=== PATIENT | female | born 1960 | race Caucasian/White ===

== ENCOUNTER → 2016-07-31 | Outpatient (CLI) | payer BC ==
--- OUTSIDE RECORDS SUMMARY | 2016-07-31 13:28 | XMS REPORT | Continuity of Care Document ---
Author Author [facility] Organization [facility] Address Unknown Phone Unavailable Allergies Medications Problems Date Dx Coded Attending Type Code Diagnosis Diagnosed By 04/27/2014 Ot 529.0 04/27/2014 Ot 529.3 04/27/2014 CECIL JILLIAN JEROME S Ot V76.12 05/04/2014 Ot 529.0 05/04/2014 Ot 529.3 05/04/2014 CECIL JILLIAN JEROME S Ot V76.12 05/25/2014 CECIL DARNELL JEROMEJILLIAN S Ot V76.12 07/08/2014 CECIL SALUD JEROMELINE S Ot 610.0 01/27/2015 [facility] DARNELL JEROMEJILLIAN S Ot V76.12 01/27/2015 [facility] DARNELL JEROMEJILLIAN S Ot V76.12 01/27/2015 [facility] DARNELL JEROMEJILLIAN S Ot 610.0 09/05/2015 SALUD RIVAS DOLINE S Ot Z12.31 10/02/2015 CECIL DARNELL JEROMEJILLIAN S Ot V76.12 OTH SCREEN MAMMO-MALIGN NEOPLASM OF SUSAN 10/02/2015 CECIL DARNELL JEROMEJILLIAN S Ot V76.12 OTH SCREEN MAMMO-MALIGN NEOPLASM OF SUSAN 10/02/2015 [facility] DARNELL JEROMEJILLIAN S Ot 610.0 SOLITARY CYST OF BREAST 10/02/2015 [facility] DARNELL JEROMEJILLIAN S Ot Z12.31 ENCNTR SCREEN MAMMOGRAM FOR MALIGNANT NE 10/26/2015 DARNELL RIVAS DOQUELINE S Ot V76.12 OTH SCREEN MAMMO-MALIGN NEOPLASM OF SUSAN 10/26/2015 BIND DO JILLIAN S Ot V76.12 OTH SCREEN MAMMO-MALIGN NEOPLASM OF SUSAN 10/26/2015 BIND SALUD JEROMELINE S Ot 610.0 SOLITARY CYST OF BREAST 10/26/2015 CECIL DO, JILLIAN S Ot Z12.31 ENCNTR SCREEN MAMMOGRAM FOR MALIGNANT NE 07/27/2016 JILLIAN RIVAS DO Ot V76.12 OTH SCREEN MAMMO-MALIGN NEOPLASM OF SUSAN 07/27/2016 SALUD RIVAS DOLINE Delonte Ot V76.12 OTH SCREEN MAMMO-MALIGN NEOPLASM OF SUSAN 07/27/2016 SALUD RIVAS DOLINE [place] Ot 610.0 SOLITARY CYST OF BREAST 07/27/2016 SALUD RIVAS DOLINE [place] Ot Z12.31 ENCNTR SCREEN MAMMOGRAM FOR MALIGNANT NE Procedures Results Encounters ACCT No. Visit Date/Time Discharge Status Pt. Type Provider Facility Loc./Unit Complaint [id number] 06/18/2014 08:38:00 2014 23:59:59 CLS Outpatient BIDEMARCUS JILLIAN S [facility] RAD ASYMMETRY [id number] 05/04/2014 09:47:00 2013 23:59:59 CLS Outpatient BIDEMARCUS JILLIAN S [facility] RAD SCREENING [id number] 11/25/2012 11:05:00 2012 23:59:59 CLS Outpatient BITRINIDAD JILLIAN JEROME S [facility] RAD ROUTINE [id number] 07/31/2016 10:15:00 PEN Preadmit JILLIAN RIVAS DO S [facility] RAD SCREENING [id number] 07/13/2015 10:20:00 ACT Outpatient JILLIAN RIVAS DO S [facility] RAD SCREENING [id number] 04/26/2009 18:24:00 Document Registration
--- NOTE | 2016-07-31 18:34 | Diagnostic Imaging Report ---
Digital mammogram bilateral screening. This study was compared to the prior exams of 07/13/2015, 05/04/2014, and 11/25/2012. At this time, there are no current complaints. The current study was also evaluated with a Computer Aided Detection (CAD) system. FINDINGS: The fibroglandular tissue in both breasts is heterogeneously dense. This does limit the sensitivity of this exam. Overall, there does not appear to have been any significant change when compared to the prior study. No primary or secondary sign of malignancy is noted. IMPRESSION: There is no radiographic evidence for malignancy. ACR BI-RADS Category 1: Negative. Result letter will be mailed to the patient. Note: At least 10% of breast cancer is not imaged by mammography. Dictated by: Dictated on workstation # [id number]
== END ==
LOC: RAD 10:06
PROVIDERS: ATTEND Family Medicine
DX: Z12.31 Encounter for screening mammogram for malignant neoplasm of breast (principal)
CPT/HCPCS: 77067

== ENCOUNTER → 2017-08-15 | Outpatient (CLI) | payer BC ==
--- NOTE | 2017-08-15 20:03 | Diagnostic Imaging Report ---
INDICATION: Routine screening. COMPARISON: Comparison is made with prior study from 07/31/2016 and 07/13/2015. The current study was also evaluated with a Computer Aided Detection (CAD) system. FINDINGS: Both breasts are heterogeneously dense, limiting the sensitivity of mammography. There has been development of a fairly circumscribed elongated density in the retroareolar aspect of the right breast. This may represent a developing cyst. Ultrasound of this region is recommended. A second density is identified in the inferior aspect of the left breast slightly medial. This may represent a cyst as well. No other masses are seen. No malignant-appearing microcalcifications are identified. There are benign calcifications. Axillae are unremarkable. IMPRESSION: Bilateral breast densities. Further evaluation with additional views and ultrasound is recommended. ACR BI-RADS Category 0: Incomplete. (Needs additional imaging evaluation). Result letter will be mailed to the patient. Note: At least 10% of breast cancer is not imaged by mammography. Dictated by: Dictated on workstation # [id number]
== END ==
LOC: RAD 10:40
PROVIDERS: ATTEND Family Medicine
DX: Z12.31 Encounter for screening mammogram for malignant neoplasm of breast (principal)
CPT/HCPCS: 77067

== ENCOUNTER → 2017-08-28 | Outpatient (CLI) | payer BC ==
--- NOTE | 2017-08-28 19:32 | Diagnostic Imaging Report ---
INDICATION: Bilateral breast densities. The patient presents for additional views. Bilateral 3-D mediolateral views as well as spot compression CC 3-D views were performed. In addition, 2-D right-sided rolled CC views as well as conventional 3-D right CC and left spot compression ML view was performed. The current study was also evaluated with a Computer Aided Detection (CAD) system. FINDINGS: Additional views of the left breast show persistent circumscribed nodular density in the lower inner aspect of the left breast at posterior depth. This may represent a cyst. Further evaluation with ultrasound is recommended. On the right, there is a linear density in the retroareolar and slightly outer aspect, indeterminate. This could represent fibroglandular tissue or a cyst. Further evaluation of this area with ultrasound is recommended. IMPRESSION: Bilateral breast densities. Further evaluation with ultrasound is recommended and will be performed today. ACR BI-RADS Category 0: Incomplete. (Needs additional imaging evaluation). Result letter will be mailed to the patient. Note: At least 10% of breast cancer is not imaged by mammography. Dictated by: Dictated on workstation # [id number]
--- NOTE | 2017-08-28 20:11 | Diagnostic Imaging Report ---
INDICATION: Bilateral breast densities. COMPARISON: Correlation is made with diagnostic mammogram performed earlier the same day. EXAMINATION: Bilateral breast ultrasound. FINDINGS: Right breast: Sonographic interrogation of the retroareolar right breast was performed. No solid or cystic mass is identified. The linear density noted on mammogram may represent fibroglandular tissue. No other abnormalities are seen. Left breast: Sonographic interrogation of the lower inner left breast demonstrates a well-defined hypoechoic mass at the 7 o'clock location, 4 cm from the nipple, measuring 10 mm x 4 mm x 6 mm. This does contain internal echoes and most likely represents a complex cyst. No posterior acoustic shadowing is present. This likely accounts for the density noted on mammogram. In addition, there is a simple cyst at the 4 o'clock location of the left breast, 3 cm from the nipple, measuring 7 mm in diameter. IMPRESSION: 1. No sonographic abnormality is identified in the right breast to account for the mammographic density. This most likely represents fibronodular tissue. Even so, followup mammogram in six months is recommended to confirm stability. 2. Simple cyst at the 4 clock location and a complex cyst at the 7 o'clock location of the left breast accounting for the mammographic density. Followup mammogram and left breast ultrasound in six months is recommended to assure continued stability. ACR BI-RADS Category 3: Probably benign findings. Result letter will be mailed to the patient. Note: At least 10% of breast cancer is not imaged by mammography. Dictated by: Dictated on workstation # [id number]
== END ==
LOC: RAD 13:32
PROVIDERS: ATTEND Family Medicine
DX: N60.12 Diffuse cystic mastopathy of left breast (principal)
CPT/HCPCS: 76642; 77066

== ENCOUNTER → 2018-04-10 | Outpatient (CLI) | payer BC ==
--- NOTE | 2018-04-10 19:25 | Diagnostic Imaging Report ---
INDICATION: Six-month followup bilateral breast densities. COMPARISON: Comparison is made with prior mammograms from 08/15/2017 as well as 08/28/2017. TECHNIQUE: 2D and 3D bilateral diagnostic mammography was performed with computer-aided detection (CAD) system. FINDINGS: Both breasts remain heterogeneously dense, limiting the sensitivity of mammography. The circumscribed slightly elongated ovoid density in the right breast at the nipple line and perhaps slightly lateral in the right breast appears stable. Remainder of the right breast is stable. The circumscribed densities in the left breast in the lower aspect and inner aspect posterior depth appear to be stable. No new mass is seen. There are benign calcifications. No malignant-appearing microcalcifications are seen. IMPRESSION: Stable bilateral mammograms. Bilateral breast ultrasound is recommended and will be performed today. ACR BI-RADS Category 0: Incomplete. (Needs additional imaging evaluation). Result letter will be mailed to the patient. Note: At least 10% of breast cancer is not imaged by mammography. Dictated by: Dictated on workstation # [id number]
--- NOTE | 2018-04-10 19:33 | Diagnostic Imaging Report ---
INDICATION: Bilateral breast nodules. COMPARISON: Correlation is made with prior ultrasound from 08/28/2017 as well as diagnostic mammogram from earlier the same day. FINDINGS: Left breast again demonstrates a circumscribed hypoechoic mass at the 7 o'clock location, 4 cm from the nipple measuring 10 mm x 6 mm x 4 mm. This again is most suggestive of a complex cyst. There are now two circumscribed nodules at the 4 o'clock location of the left breast, 3 cm from the nipple, largest approximately 7 mm x 4 mm x 8 mm. These two most likely represent small complex cysts. Sonographic interrogation of the retroareolar and slightly outer right breast was performed. There is an area of circumscribed hypoechogenicity at this location, 3 cm from the nipple measuring 15 mm x 4 mm x 11 mm. This has a similar shape to the density noted mammographically and most likely represents either benign fibroglandular tissue or perhaps a fibroadenoma. This does appear to be benign. No other abnormalities are seen. IMPRESSION: Benign findings bilaterally. Patient may return to routine annual screening mammography. ACR BI-RADS Category 2: Benign findings. Dictated by: Dictated on workstation # [id number]
== END ==
LOC: RAD 12:59
PROVIDERS: ATTEND Nurse Practitioner Family
DX: N63.10 Unspecified lump in the right breast, unspecified quadrant (principal); N63.23 Unspecified lump in the left breast, lower outer quadrant; N63.24 Unspecified lump in the left breast, lower inner quadrant; N60.09 Solitary cyst of unspecified breast
CPT/HCPCS: 76642; 77066